=== PATIENT | female | born 1955 | race African-American/Black ===

== ENCOUNTER → 2016-12-25 | Outpatient (CLI) | payer MEDICARE, OTHER ==
[~2016-12-25] MED LIST: ABILIFY2 MG ORAL; AMBIEN10 M1 ORAL; ATIVAN1 MG ORAL; BENICAR40 MG ORAL; CIPRO500 MG PO; CIPROFLOXACIN500 M2 ORAL; GLIPIZIDE5 MG ORAL; HUMALOG100 UNIT/4 SUBQ; JANUVIA100 MG PO; LEVEMIR FL100 UNIT/1 SUBQ; LEVEMIR100 UNIT/1 SUBQ; LORAZEPAM1 MG PO; METOPROLOL TART25 MG PO; NOVOLOG100 UNIT/3 SUBQ; PERCOCET 10-321 EACH PO; PERCOCET 5-3251 EACH ORAL; POTASSIUM CHLO20 ME1 PO; PREDNISONE50 MG ORAL; STARLIX120 MG ORAL; TRIBENZOR 40-51 EAC1 PO; VIBERZI75 MG PO; VICTOZA 2-0.6 MG/0.1 SUBQ; VIIBRYD40 MG PO; VITAMIN C500 M1 ORAL; ZOLPIDEM TARTRA10 MG PO; [UNRECOGNIZED DRUG - CODE] ORAL
[2016-12-25 10:59] VITALS: BP 121/78
--- NOTE | 2016-12-25 11:28 | GI Initial Consult Note ---
History of Present Illness General Date patient seen: Dec 25, 2016 Time patient seen: 11:19 Reason for Consultation: REPEAT COLONOSCOPY Present Illness HPI 61 year old female patient with hx of colon CA dx 2004 presents today to [facility] for repeat colonoscopy. Her last colonoscopy was performed here at [facility] in 12/2012 with findings of three colonic polyps and internal hemorrhoids. She presents today with c/o of diarrhea, watery in nature after she eats a meal. Denies any hematochezia or melena. The patient also states she was recently hospitalized at [facility] for pneumonia approximately 2 weeks ago and is still recovering. Denies any abdominal pain at this time. The patient states she has had steady intentional weight loss over the past 2 years due to her DM. 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 Reported Medications Zolpidem Tartrate* (AMBIEN*) 10 Mg Tablet, 10 MG ORAL HS Y for Insomnia, TAB 12/25/16 Liraglutide (VICTOZA 2-ELADIA) 0.6 Mg/0.1 Ml Pen.injctr, 0.6 MG SUBQ DAILY, EA 0 Refills 12/25/16 Insulin Lispro (HUMALOG) 100 Unit/1 Ml Cartridge, 17 SUBQ AC, #1 UNITS 0 Refills 12/25/16 Insulin Detemir (LEVEMIR) 100 Unit/1 Ml Vial, 40 SUBQ BEDTIME, VIAL 12/13/15 Ascorbic Acid* (VITAMIN C*) 500 Mg Tablet, 1000 MG ORAL DAILY, TAB 12/29/12 Vilazodone Hydrochloride (VIIBRYD) 40 Mg Tablet, 40 MG PO DAILY 12/29/12 Olmesartan Med/Amlodipine/Hctz 40-5-25MG (TRIBENZOR 40-5-25 MG TABLET) 1 Each Tablet, 1 EACH PO DAILY 12/29/12 Discontinued Reported Medications Insulin Aspart* (NOVOLOG*) 100 Unit/1 Ml Insuln.pen, 17 SUBQ AC, #1 EA 0 Refills 12/13/15 Zolpidem Tartrate* (ZOLPIDEM TARTRATE*) 10 Mg Tablet, 20 MG PO BEDTIME Y for Insomnia, #60 12/26/13 Oxycodone Hcl/Acetaminophen 10-325 Mg Tablet (PERCOCET 10-325 MG TABLET*) 1 Each Tablet, 1 TAB PO EVERY 6 HOURS Y for For Pain, #10 TAB Avoid taking with alcohol or while driving 12/29/12 Metoprolol Tartrate* (METOPROLOL TARTRATE*) 25 Mg Tablet, 50 MG PO BID, #30 TAB 12/29/12 Med list reviewed/reconciled: Yes Allergies: Coded Allergies: MORPHINE (Verified Allergy, Intermediate, 12/13/15) ASPIRIN (Verified Allergy, Unknown, 12/13/15) NSAIDS (NON-STEROIDAL ANTI-INFLAMMA (Verified Allergy, Unknown, 12/13/15) SULFA (SULFONAMIDE ANTIBIOTICS) (Verified Allergy, Unknown, 12/13/15) Patient History History Provided By: Patient, Medical Record PMH Narrative colon CA DM depression anxiety Social History: Denies: alcohol use, drug use, other, smoking Review of Systems All Other Systems: negative except mentioned in HPI Physical Exam Vital Signs Date Time Temp Pulse Resp B/P Pulse Ox O2 Delivery O2 Flow Rate FiO2 12/25/16 10:59 98.1 102 18 121/78 98 Sp02 EP Interpretation: reviewed General Appearance: well appearing, no apparent distress, alert, non-toxic, obese EENT: normal ENT inspection Neck: full range of motion Respiratory: normal breath sounds, no respiratory distress Cardiovascular: tachycardia Gastrointestinal: normal inspection, non tender, soft Rectal: deferred Musculoskeletal: normal inspection, back normal Neurologic: normal inspection, alert, oriented x3, responsive Psychiatric: normal inspection, judgement/insight normal, memory normal Skin: normal inspection, normal color, no rash Lymphatic: normal inspection, no adenopathy Other Organ Systems excessive hand tremors HgA1C 12 --> [address] (DM) GI: Plan Problems: (1) Diarrhea (2) Colonoscopy planned (3) Chronic back pain (4) Unsteady gait (5) DM (diabetes mellitus) (6) Colon polyps Plan pt scheduled for EGD/colonoscopy 01/04/17 - [facility] & [employer] prep instructions given and acknowledged. diarrhea most likely from abx use hand tremors >> dc albuterol use Seen with Dr. Garza. Lyn Dubon N.P. Dec 25, 2016 11:28
== END | disposition home or self-care (01) ==
LOC: PAN 10:42
DX: R19.7 Diarrhea, unspecified (principal); M54.9 Dorsalgia, unspecified; G89.29 Other chronic pain; R26.81 Unsteadiness on feet; E11.9 Type 2 diabetes mellitus without complications; K63.5 Polyp of colon; Z85.038 Personal history of other malignant neoplasm of large intestine; Z86.59 Personal history of other mental and behavioral disorders; Z88.6 Allergy status to analgesic agent; Z88.2 Allergy status to sulfonamides; Z79.4 Long term (current) use of insulin
CPT/HCPCS: 99211

== ENCOUNTER 2017-01-02 16:41 | Emergency (ER) | payer MEDICARE, OTHER ==
[~2017-01-02] VITALS: Ht 160 cm; Wt 90.3 kg
[~2017-01-02 16:41] MED LIST changes: -CIPROFLOXACIN500 M2 ORAL; -PERCOCET 5-3251 EACH ORAL; -VIBERZI75 MG PO
[2017-01-02 16:58] VITALS: BP 139/82
--- NOTE | 2017-01-02 17:08 | Emergency Room Report ---
History of Present Illness General Chief Complaint: Pain Source: Patient Present Illness HPI Patient is a 61-year-old female who presented to increased low back pain. Patient had reported prior history of kidney stones. Patient denies any fever. She reported having bilateral lower back pain. Patient stated that she has prior history of diabetes. She denied any hematuria. Patient stated that she had recently hospitalized after having some pneumonia. She denied vomiting or having any current cough.The patient states the pain has been ongoing for approximately 3 days. The pain was noted to not radiate. She denied any bowel or bladder dysfunction. Allergies: Coded Allergies: MORPHINE (Verified Allergy, Intermediate, 12/13/15) ASPIRIN (Verified Allergy, Unknown, 12/13/15) NSAIDS (NON-STEROIDAL ANTI-INFLAMMA (Verified Allergy, Unknown, 12/13/15) SULFA (SULFONAMIDE ANTIBIOTICS) (Verified Allergy, Unknown, 12/13/15) Patient History Past Medical History: see triage record Now: No Reviewed Nursing Documentation: PMH: Agreed, PSxH: Agreed Nursing Documentation-PMH Past Medical History: No History, Except For Hx Cardiac Problems: Yes Hx Hypertension: Yes Hx Diabetes: Yes Hx Cancer: Yes - colon Hx Gastrointestinal Problems: Yes - IBS Review of Systems All Other Systems: negative except mentioned in HPI Physical Exam Vital Signs Date Time Temp Pulse Resp B/P Pulse Ox O2 Delivery O2 Flow Rate FiO2 01/02/17 16:48 98.2 97 16 135/78 100 Room Air Sp02 EP Interpretation: reviewed, normal General Appearance: normal inspection, well appearing, no apparent distress, alert, GCS 15 Head: atraumatic ENT: normal ENT inspection, hearing grossly normal, normal voice Neck: normal inspection, full range of motion, supple, no bony tend Respiratory: normal inspection, lungs clear, normal breath sounds, no respiratory distress, no retraction, no wheezing Cardiovascular #1: regular rate, rhythm, no edema Gastrointestinal: normal inspection, normal bowel sounds, non tender, soft, no guarding, no hernia Genitourinary: no CVA tenderness Musculoskeletal: normal inspection, back normal, normal range of motion Neurologic: normal inspection, alert, oriented x3, responsive, parts designer III-XII nml as tested, speech normal Psychiatric: normal inspection, judgement/insight normal, mood/affect normal Skin: normal inspection, normal color, no rash Medical Decision Making Diagnostic Impression: Primary Impression: Back pain Additional Impressions: acute exacerbation of chronic pain UTI (urinary tract infection) ER Course Patient is a 61-year-old female presented for low back pain.Differential diagnosis included but was not limited to herniated disc, cauda equina syndrome , abdominal aortic aneurysm, perforated ulcer, spinal epidural abscess, spinal stenosis, lumbar fracture, metastatic lesion, pyelonephritis. The lab for testing showed evidence of urinary tract infection. Patient was noted to have no fever at this time. Patient was given oral Percocet for pain. Patient was noted to have prior history of chronic back pain. The [employer] database was checked. The patient had recently been prescribed Suboxone as well as Ativan. Patient was noted to have some urinary infection on laboratory testing. CT imaging showed no obstructing renal stones. Patient was given antibiotics and pain medications. She was advised to follow up with her physician for recheck in 1-2 days. She was advised to return for fever, worsening pain, vomiting or other concerns. Laboratory Tests Test 01/02/17 17:00 Urine Color Yellow Urine Appearance Slightly cloudy Urine pH 5 (4.5-8.0) Urine Specific [place] 1.020 (1.005-1.035) Urine Protein 1+ (NEGATIVE) H Urine Glucose (UA) Negative (NEGATIVE) Urine Ketones 1+ (NEGATIVE) H Urine Occult Blood 1+ (NEGATIVE) H Urine Nitrite Negative (NEGATIVE) Urine Bilirubin Negative (NEGATIVE) Urine Urobilinogen Normal MG/DL (0.0-1.0) Urine Leukocyte Esterase 3+ (NEGATIVE) H Urine RBC 5-10 /HPF (0 - 2) H Urine WBC 10-15 /HPF (0 - 2) H Urine Squamous Epithelial Cells Moderate /LPF (NONE/OCC) H Urine Amorphous Sediment Few /LPF (NONE) H Urine Bacteria Many /HPF (NONE) H Urine Opiates Screen Negative (NEGATIVE) Urine Barbiturates Screen Negative (NEGATIVE) Phencyclidine (PCP) Screen Negative (NEGATIVE) Urine Amphetamines Screen Negative (NEGATIVE) Urine Benzodiazepines Screen Negative (NEGATIVE) Urine Cocaine Screen Negative (NEGATIVE) Urine Marijuana (THC) Screen Negative (NEGATIVE) Last Vital Signs Date Time Temp Pulse Resp B/P Pulse Ox O2 Delivery O2 Flow Rate FiO2 01/02/17 16:58 98.1 94 15 139/82 99 Room Air Status: improved Disposition: HOME, SELF-CARE Condition: Stable Scripts Oxycodone/Acetaminophen 5-325* (PERCOCET 5-325 MG TABLET*) 1 Each Tablet 1 TAB ORAL Q4H Y for For Pain, #8 TAB 0 Refills Prov: Miah Gonzalez 01/02/17 Ciprofloxacin Hcl* (CIPROFLOXACIN HCL*) 500 Mg Tablet 500 MG ORAL EVERY 12 HOURS, #14 TAB 0 Refills Prov: Miah Gonzalez 01/02/17 Miah Gonzalez Jan 02, 2017 17:08
[2017-01-02 17:29] LABS: KETONES,URINE 1+ (NEGATIVE); LEUKOCYTE ESTERASE ,URINE 3+ (NEGATIVE); NITRITE,URINE NEGATIVE (NEGATIVE); PH,URINE 5 (4.5-8.0); PROTEIN,URINE 1+ (NEGATIVE); UROBILINOGEN,URINE NORMAL MG/DL (0.0-1.0)
[2017-01-02] MEDS ORDERED: Oxycodone/Acetaminophen 5-325 ORAL ONE (17:30)
[2017-01-02 17:36] LABS: APPEARANCE,URINE SLIGHTLY CLOUDY
[2017-01-02 17:39] LABS: BACTERIA,URINE MANY /HPF; SQUAMOUS EPITHELIAL CELL,UR MODERATE /LPF (NONE/OCC)
[2017-01-02 17:40] LABS: AMORPHOUS SEDIMENT,UR FEW /LPF
[2017-01-02] MEDS ORDERED: Cephalexin 500mg cap ORAL ONE (18:00)
[2017-01-02 18:42] VITALS: BP 129/80
[2017-01-02] MEDS ORDERED: CIPROFLOXACIN500 M2 ORAL (19:31)
[2017-01-02] MEDS ORDERED: PERCOCET 5-3251 EACH ORAL (19:31)
[2017-01-02 20:13] VITALS: BP 125/72
--- NOTE | 2017-01-03 09:13 | Diagnostic Imaging Report ---
Indication: Abdominal pain Technique: Spiral acquisitions obtained through the abdomen and pelvis. No oral or IV contrast utilized, per urinary stone protocol. Multiplanar reconstructions were generated. Total dose length product the 92 mGycm. CTDIvol(s) 18 mGy Comparison: 11/10/2013 Findings: A group of calcifications is again demonstrated in the left renal lower pole, in aggregate measuring 13 mm long axis dimension others smaller calcifications are seen scattered throughout the left lower pole calyces. The large central calcification seen on the prior exam is no longer evident. A few small calcifications are seen in the lower pole right kidney. These were present previously although are more conspicuous on the current study. No ureteral calculi, hydronephrosis, hydroureter demonstrated. Lack of IV contrast limits assessment of the renal parenchyma. No gross renal parenchymal mass or cyst demonstrated. The bladder is unremarkable. Lack of IV contrast limits assessment of the other solid organs. Slight hepatic low attenuation persists, but is considerably decreased from the prior study, consistent with improving but persistent hepatic steatosis. No focal hepatic parenchymal abnormality is demonstrated. The gallbladder is nondistended, grossly unremarkable. No biliary ductal dilatation. The pancreas, spleen, adrenals are unremarkable and unchanged. No retroperitoneal or mesenteric mass or adenopathy. No pelvic mass or adenopathy. The uterus is not demonstrated, presumed surgically absent. Surgical staple lines are seen in the ascending colon. Presumably prior right proximal colonic resection. No evidence of diverticulosis or diverticulitis. No small bowel distention. No free or loculated intraperitoneal air or fluid. There is a small umbilical hernia that contains only fat. The distal esophagus, stomach, duodenum are unremarkable. Surgical clips are seen and mesenteric root and peripancreatic region. The included lung bases are clear. The bones demonstrate degenerative spondylosis changes. Impression: Persistent left renal calculi, as described. The largest calculus previously demonstrated is no longer evident, however. There are also a few small right renal calculi. No evidence of ureteral calculus or obstructive uropathy Hepatic steatosis, persistent but improved since prior study of 11/10/2013 Postsurgical changes, as described, including prior ascending colectomy, prior hysterectomy Incidental findings as noted, including degenerative spondylosis and small fat-containing umbilical hernia This agrees with the preliminary interpretation provided overnight by Dr. Diaz The CT scanner at [facility] is accredited by the [employer] and the scans are performed using protocols designed to limit radiation exposure to as low as reasonably achievable to attain images of sufficient resolution adequate for diagnostic evaluation.
[2017-02-11] MEDS ORDERED: VIBERZI75 MG PO (14:55)
== END 2017-01-02 20:13 | disposition home or self-care (01) ==
LOC: EMR 17:20
DX: M54.5 Low back pain (principal); G89.29 Other chronic pain; N39.0 Urinary tract infection, site not specified; E11.9 Type 2 diabetes mellitus without complications; I10 Essential (primary) hypertension; K58.9 Irritable bowel syndrome, unspecified; Z85.038 Personal history of other malignant neoplasm of large intestine; Z88.6 Allergy status to analgesic agent; Z88.2 Allergy status to sulfonamides
CPT/HCPCS: 74176; 80300; 81003; 82962; 87086; 99284

== ENCOUNTER → 2017-02-01 | Day surgery (SDC) | payer MEDICARE, OTHER ==
[~2017-02-01] VITALS: Ht 162.6 cm; Wt 86.2 kg
[2017-02-01] VITALS (8 sets, daily range): BP systolic 147–162; BP diastolic 50–97
[~2017-02-01] MED LIST changes: +CIPROFLOXACIN500 M2 ORAL; +LR 1000ml ONE; +Lidocaine 1% MPF 10mg/ml 5ml ONE; +PERCOCET 5-3251 EACH ORAL; +Propofol 10mg/ml 20ml IV ONE; +VIBERZI75 MG PO
--- NOTE | 2017-02-01 09:24 | Pre-Procedure Note/Attestation ---
Pre-Procedure Note/Attestation Complete Prior to Procedure Planned Procedure: not applicable Procedure Narrative: colonoscopy Indications for Procedure Pre-Operative Diagnosis: h/o colon polyps Attestation I attest that I discussed the nature of the procedure; its benefits; risks and complications; and alternatives (and the risks and benefits of such alternatives ), prior to the procedure, with the patient (or the patient's legal patient relations representative). I attest that, if there was a reasonable possibility of needing a blood transfusion, the patient (or the patient's legal patient relations representative) was given the [facility] standardized written summary, pursuant to the Jose Maria [place] Blood Safety Act ([place] Health and Safety Code # 1645, as amended). I attest that I re-evaluated the patient just prior to the surgery and that there has been no change in the patient's H&P, except as documented below: LENORE EM Feb 01, 2017 09:24
--- NOTE | 2017-02-01 09:25 | Short Stay Surgery H&P ---
History of Present Illness History of Present Illness Chief Complaint h/o colon polyps HPI Irene Liang is a 61 year old female who was admitted on for History Of Colon Cancer , Abdominal Pain Patient History Allergies: Coded Allergies: EPOETIN AARON (Verified Allergy, Severe, Rash, 02/01/17) MORPHINE (Verified Allergy, Intermediate, 12/13/15) ASPIRIN (Verified Allergy, Unknown, 12/13/15) NSAIDS (NON-STEROIDAL ANTI-INFLAMMA (Verified Allergy, Unknown, 12/13/15) SULFA (SULFONAMIDE ANTIBIOTICS) (Verified Allergy, Unknown, 12/13/15) PAST MEDICAL HISTORY: (1) HTN (hypertension) (2) DM (diabetes mellitus) (3) Gastritis (4) Abdominal pain (5) Colon polyps Past Surgeries: Social History: Medication History Scheduled Ascorbic Acid* (Vitamin C*), 1,000 MG ORAL DAILY, (Reported) Insulin Detemir (Levemir), 40 SUBQ BEDTIME, (Reported) Insulin Lispro (Humalog), 17 SUBQ AC, (Reported) Lorazepam* (Ativan*), 1 MG ORAL THREE TIMES A DAY Olmesartan Med/Amlodipine/Hctz 40-5-25MG (Tribenzor 40-5-25 Mg Tablet), 1 EACH PO DAILY, (Reported) Vilazodone Hydrochloride (Viibryd), 40 MG PO DAILY, (Reported) Scheduled PRN Zolpidem Tartrate* (Ambien*), 10 MG ORAL HS PRN for Insomnia, (Reported) Discontinued Medications Ciprofloxacin Hcl* (Ciprofloxacin Hcl*), 500 MG ORAL EVERY 12 HOURS Discontinued Reason: Therapy completed Review of Systems Cardiovascular: Reports: no symptoms Respiratory: Reports: no symptoms Skeletal: Reports: no symptoms Gastrointestinal: Reports: no symptoms Genitourinary: Reports: no symptoms Neurologic: Reports: no symptoms Endocrine: Reports: no symptoms Hematologic: Reports: no symptoms Physical Exam Vital Signs Last Vital Signs Date Time Temp Pulse Resp B/P Pulse Ox O2 Delivery O2 Flow Rate FiO2 02/01/17 08:49 98.5 89 18 147/79 98 Room Air Skin: normal HENT: normal Heart: normal Lungs: normal Abdomen: normal Extremities: normal Plan Plan of Care colonoscopy Final Diagnosis: Attestation Are the patient's medical conditions optimized for surgery? Attestation Response: yes LENORE EM Feb 01, 2017 09:25
--- NOTE | 2017-02-01 09:58 | Endoscopy Procedure Note ---
Endoscopy Procedure Note Indication for Procedure: h/o colon cancer, GERD Procedures Performed: EGD, colonoscopy Operative Findings/Diagnosis: 4 polyps Specimen: yes Pt Tolerated Procedure Well: Yes Estimated Blood Loss: none Anesthesiologist: mary Anesthesia: MAC Implant(s) used?: No 50 yrs or older w/o bx or poly: No 10yrs. F/U not recommended: Yes If not recommended, why?: Above average risk 10 yrs. F/U needed: Yes 18 years or older w/prev. colo: Yes <3yrs. since last colonoscopy: No LENORE EM Feb 01, 2017 09:58
--- NOTE | 2017-02-01 10:06 | Immediate Post-Op Evaluation ---
Immediate Post-Op Evalulation Immediate Post-Op Evalulation Procedure: EGD/Colonoscopy Date of Evaluation: Feb 01, 2017 Time of Evaluation: 10:05 IV Fluids: 300 Blood Pressure Systolic: 162 Blood Pressure Diastolic: 97 Pulse Rate: 79 O2 Sat by Pulse Oximetry: 100 Temperature (Fahrenheit): 97.4 Nausea: No Vomiting: No Complications none Patient Status: awake, patent Hydration Status: adequate Drug: none ROMEL TRINH CRNA Feb 01, 2017 10:06
--- NOTE | 2017-02-01 10:08 | Anethesia Preoperative Eval ---
Anesthesia Pre-op PMH/ROS General Date of Evaluation: Feb 01, 2017 Time of Evaluation: 09:30 Anesthesiologist: glenna ASA Score: ASA 3 Mallampati Score Class I : Soft palate, uvula, fauces, pillars visible Class II: Soft palate, uvula, fauces visible Class III: Soft palate, base of uvula visible Class IV: Only hard plate visible Mallampati Classification: Class III Surgeon: galdino Diagnosis: colon ca Surgical Procedure: EGD/Colonoscopy Anesthesia History: none Family History: no anesthesia problems Allergies: Coded Allergies: EPOETIN AARON (Verified Allergy, Severe, Rash, 02/01/17) MORPHINE (Verified Allergy, Intermediate, 12/13/15) ASPIRIN (Verified Allergy, Unknown, 12/13/15) NSAIDS (NON-STEROIDAL ANTI-INFLAMMA (Verified Allergy, Unknown, 12/13/15) SULFA (SULFONAMIDE ANTIBIOTICS) (Verified Allergy, Unknown, 12/13/15) Medications: see eMAR Past Medical History Cardiovascular: Reports: HTN Gastrointestinal/Genitourinary: Reports: GERD Neurologic/Psychiatric: Denies: CVA, TIA, dementia, depression/anxiety, other Endocrine: Reports: DM, steroids HEENT: Denies: [place] (L), [place] (R), cataract (L), cataract (R), glaucoma, other Hematology/Immune: Denies: DVT, anemia, bleeding disorder, other Musculoskeletal/Integumentary: Denies: DDD, DJD, OA, RA, edema, other Other: obesity Anesthesia Pre-op Phys. Exam Physician Exam Last Vital Signs Date Time Temp Pulse Resp B/P Pulse Ox O2 Delivery O2 Flow Rate FiO2 02/01/17 08:49 98.5 89 18 147/79 98 Room Air Constitutional: NAD Neurologic: CN 2-12 intact Cardiovascular: RRR Respiratory: CTA Gastrointestinal: S/NT/ND Airway Exam Mallampati Classification 3 Mallampati Score: Class III MO: full ROM: full Dentures: no lower, no upper Anesthesia Pre-op A/P Studies Pre-op Studies: EKG - SR Risk Assessment & Plan Plan: mac Status Change Before Surgery: No Pre-Antibiotics Drug: none ROMEL TRINH CRNA Feb 01, 2017 10:08
--- NOTE | 2017-02-01 10:53 | 48 Hour Post Anesthesia Eval ---
Post Anesthesia Evaluation Procedure: EGD/Colonoscopy Date of Evaluation: Feb 01, 2017 Time of Evaluation: 10:51 Blood Pressure Systolic: 154 0: 50 Pulse Rate: 74 O2 Sat by Pulse Oximetry: 99 Airway: patent Nausea: No Vomiting: No Hydration Status: adequate Mental Status/LOC: patient returned to baseline Post-Anesthesia Complications: none Follow-up care needed: N/A ROMEL TRINH CRNA Feb 01, 2017 10:53
--- NOTE | 2017-02-01 20:08 | Procedure Note ---
DATE OF PROCEDURE: 02/01/2017 SURGEON: Cali Garza M.D. PROCEDURE: Upper endoscopy with biopsy and colonoscopy with biopsy. ANESTHESIA: Per EEG TECH, Gina Ortiz. INSTRUMENT: Olympus adult flexible upper endoscope and colonoscope. INDICATION: History of colon cancer in the past, follow up with colonoscopy and also history of chronic acid reflux disease. The procedure, risks, benefits, and possible consequences, including hemorrhage, aspiration, perforation and infection, and alternative treatments, were explained to the patient/legal guardian by Dr. Cali Garza and the patient/legal guardian understood and accepted these risks. DESCRIPTION OF PROCEDURE: After informed consent was obtained and the patient was adequately sedated, Olympus upper endoscope was advanced from mouth into the second portion of duodenum and retroflexion was performed of the stomach. The patient had evidence of diffuse gastritis. Random biopsy from antrum was obtained to rule out H. pylori infection. At this time, the upper endoscope was retrieved and the patient was turned over for colonoscopy. First, a rectal exam was performed, which was positive for internal hemorrhoids and the scope was advanced from the rectum into the anastomosis. Quality of prep was fair. The patient had two polyps in the transverse colon and two polyps in the sigmoid colon. They were all small polyps, removed with cold biopsy forceps technique. No obvious mass was seen. Retroflexion of rectum showed evidence of large internal hemorrhoids. Random biopsy from anastomosis also was obtained. SUMMARY OF FINDINGS: 1. Fair colonic prep. 2. Total of four polyps removed. See above for details. 3. Large internal hemorrhoids. 4. Gastritis. RECOMMENDATIONS: 1. Follow up biopsies and treat accordingly. We recommend repeat colonoscopy in three years. 2. Treat for hemorrhoids if symptomatic. Cali Garza M.D. DR: KATY JOB#: [id number] CC:
--- NOTE | 2017-02-07 22:35 | Cardiology Report ---
APPROVED REPORT EKG Measurement Heart [id number] OR [id number] Normal sinus rhythm Cannot rule out Anterior infarct, age undetermined Abnormal ECG
== END | disposition home or self-care (01) ==
LOC: GAS 07:53
DX: Z85.038 Personal history of other malignant neoplasm of large intestine (principal); D12.3 Benign neoplasm of transverse colon; D12.5 Benign neoplasm of sigmoid colon; K64.8 Other hemorrhoids; K21.9 Gastro-esophageal reflux disease without esophagitis; K29.50 Unspecified chronic gastritis without bleeding; K31.7 Polyp of stomach and duodenum; I10 Essential (primary) hypertension; E11.9 Type 2 diabetes mellitus without complications; Z79.4 Long term (current) use of insulin; E66.9 Obesity, unspecified; Z87.19 Personal history of other diseases of the digestive system; Z88.6 Allergy status to analgesic agent; Z88.5 Allergy status to narcotic agent; Z88.2 Allergy status to sulfonamides; Z88.8 Allergy status to other drugs, medicaments and biological substances
CPT/HCPCS: 43239; 45380; 82962; 93005; J2704; J7120; 94003; 94150

== ENCOUNTER → 2017-02-11 | Outpatient (CLI) | payer MEDICARE, OTHER ==
[~2017-02-11] MED LIST changes: -LR 1000ml ONE; -Lidocaine 1% MPF 10mg/ml 5ml ONE; -Propofol 10mg/ml 20ml IV ONE
--- NOTE | 2017-02-11 14:54 | GI Progress Note ---
Assessment/Plan Problems: (1) Hemorrhoid ICD Codes: K64.9 - Unspecified hemorrhoids SNOMED: 61472394 (2) DM (diabetes mellitus) ICD Codes: E11.9 - DM (diabetes mellitus) SNOMED: 22743903 (3) Colon polyps ICD Codes: K63.5 - Colon polyps SNOMED: 66754870 (4) Abdominal pain ICD Codes: R10.9 - Abdominal pain SNOMED: 02562317 (5) Diarrhea ICD Codes: R19.7 - Diarrhea, unspecified SNOMED: 01662621 (6) h/o colon cancer 2004 (7) Gastritis ICD Codes: K29.70 - Gastritis SNOMED: 0831416 Status: stable Status Narrative Seen with Dr. Garza. Assessment/Plan colonoscopy reviewed with patient trial period Viberzi 75mg BID RTC x 1 month, patient will contact. repeat colon x 3 years Subjective Subjective diarrhea, hx of bypass surgery 2004, refuses to take imodium decrease in appetite anxiety with hand tremors hx colon CA 2004 gradual weight loss, intentional Objective T 98.4 BP 135/73 P 107 97 RA WT 189.5 lbs ( -10lbs since 12/25/16) General Appearance: no apparent distress, alert, other - anxious Cardiovascular: normal rate Respiratory/Chest: normal breath sounds, no respiratory distress Abdominal Exam: normal bowel sounds, non tender, soft Extremities: normal range of motion Objective Endoscopy Procedure Note Indication for Procedure: h/o colon cancer, GERD Procedures Performed: EGD, colonoscopy Operative Findings/Diagnosis: 4 polyps LENORE GARZA - Feb 01, 2017 09:58 Lyn Dubon NJosePJose Feb 11, 2017 14:54
== END | disposition home or self-care (01) ==
LOC: PAN 13:52
DX: K64.9 Unspecified hemorrhoids (principal); E11.9 Type 2 diabetes mellitus without complications; K63.5 Polyp of colon; R10.9 Unspecified abdominal pain; R19.7 Diarrhea, unspecified; K29.70 Gastritis, unspecified, without bleeding; Z85.038 Personal history of other malignant neoplasm of large intestine; Z98.84 Bariatric surgery status
CPT/HCPCS: 99211